=== PATIENT | male | born 2000 | race Caucasian/White ===

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

== ENCOUNTER 2019-05-31 03:14 | Emergency (ER) | payer OTHER, BC, SELFPAY ==
[2019-05-31 03:15] VITALS: BP 131/76; PULSE 98; RESP 16; TEMP 37.1; O2SAT 98; BMI 37.3
--- NOTE | 2019-05-31 03:23 | ED.DCSUM_ITS ---
History of Present Illness Chief Complaint: Laceration Informant: Patient Onset: Today Current Severity: Mild Maximum Severity: Mild Narrative: Patient presents with laceration to the distal aspect of his left thumb. He was at work tonight and caught it on the edge of a tube. No active bleeding at this time. He is left-hand dominant. He is unsure of his last tetanus update. Past Medical History - Allergies and Home Meds Allergies/Adverse Reactions: Allergies amoxicillin [From Augmentin] Allergy (Verified 05/31/19 03:20) Rash clavulanic acid [From Augmentin] Allergy (Verified 05/31/19 03:20) Rash Primary Care Physician: Care Physician,No Primary [Primary Care Provider] - Past Medical History: None Smoking Status: Never smoker Review of Systems General: Denies: Chills, Fever Eyes: Denies: Visual changes - bilaterally ENT: Denies: Bilateral ear pain Cardiovascular: Denies: Chest pain Respiratory: Denies: Dyspnea, Cough Gastrointestinal: Denies: Abdominal pain, Nausea, Vomiting, Diarrhea Musculoskeletal: Reports: Extremity Pain Skin: Reports: Wounds Neurological: Denies: Headache, Weakness, Parasthesia Hematologic: Denies: Easy bruising, Easy bleeding Physical Exam Vital Signs/Narrative: Vital Signs Temp Pulse Resp BP Pulse Ox 05/31/19 03:15 98.8 F 98 16 131/76 H 98 Inital Vital Signs reviewed: Yes General: Well nourished, Well developed Head: Normocephalic ENT: Moist mucous membranes Neck: Supple Cardiovascular: Regular rate, Regular rhythm Respiratory: No distress, CTA bilaterally Abdomen: Soft, Nontender Extremities: - - 1 cm laceration over the distal aspect of the left thumb. No active bleeding. Full range of motion. Sensation intact. Skin: - - As above Neurological: Alert, Oriented x3, Normal Strength, Normal Sensation Psychological: Normal affect Diagnostic/Tx/Re-eval - Medical Decision Making Left thumb is cleansed. The laceration is quite superficial. It is sealed with Dermabond and bulky dressing placed for tonight. Tomorrow he can go to just a Band-Aid over his hand. Tetanus shot is updated. [facility] Disposition - Plan for ED Patient: Disposition: Home or Assisted Living Diagnosis: Laceration of left thumb Instructions: LACERATION, Extremity (Skin Glue) Referrals: [facility] [GROUP OF PHYSICIANS] - 3-5 Days
--- NOTE | 2019-05-31 03:27 | ED.RN ---
PT using scrub brush to clean hands.
--- NOTE | 2019-05-31 03:53 | ED.RN ---
SEE DOWNTIME DOCUMENTATION FROM 4010 UNTIL NOW
[2019-05-31 04:06] VITALS: BP 130/60; PULSE 91; RESP 16; O2SAT 98
== END 2019-05-31 04:07 | disposition home or self-care (01) ==
PROVIDERS: Emergency Provider Emergency Medicine
DX: S61.012A Laceration without foreign body of left thumb without damage to nail, initial encounter (principal); Y99.0 Civilian activity done for income or pay
CPT/HCPCS: 12001; 90715; 99282

== ENCOUNTER 2020-08-18 05:00 | Emergency (ER) | payer OTHER, SELFPAY ==
[2019-06-05 09:05] VITALS: BMI 37.3
[2020-08-18 05:01] VITALS: BP 142/84; PULSE 90; RESP 16; TEMP 36.6; O2SAT 99; BMI 38.7
--- NOTE | 2020-08-18 05:35 | RAD_ITS ---
HISTORY: Injury/Pain. Remote and recent shoulder injury, patient states he felt a pop in left shoulder tonight. EXAMINATION/TECHNIQUE: XR Shoulder Min 2 Views: 3 views left shoulder COMPARISON: None FINDINGS: SOFT TISSUES: No significant soft tissue swelling. BONES/JOINTS: No acute fracture or subluxation. Normal alignment. Preservation of the joint spaces. No sclerotic or destructive changes observed. RAD/Shoulder min 2 Views IMPRESSION: Negative left shoulder. at 0641 Reported and signed by: Kermit Potter MD Electronically Signed: Kermit Potter MD at 6:40 EDT Tel , Service support ,
--- NOTE | 2020-08-18 05:35 | RAD_ITS ---
HISTORY: Injury/Pain EXAMINATION/TECHNIQUE: XR Hand 3 Views: Left hand COMPARISON: None FINDINGS: SOFT TISSUES: No significant soft tissue swelling. No radiopaque foreign body identified. BONES/JOINTS: There appears to be subluxation at first carpometacarpal joint. No discrete fracture defect demonstrated. Normal alignment. Preservation of the joint spaces. No sclerotic or destructive changes observed. RAD/Hand Min 3 Views IMPRESSION: First CMC subluxation. Correlate clinically and with physical exam. at 0636 Reported and signed by: Kermit Potter MD Electronically Signed: Kermit Potter MD at 6:35 EDT Tel , Service support ,
--- NOTE | 2020-08-18 05:38 | EDS_ITS ---
HPI History of Present Illness Chief Complaint: Upper Extremity Injury Informant: patient Onset/Context/Timing Onset: Today Context: Onset with activity Timing: Continuous Quality of Pain: - (Numbness) Location: Left wrist and forearm Worsened by: Nothing Relieved by: Nothing Narrative Narrative: Patient presents with numbness and tingling to his left hand and forearm that began today while at work. 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 Patient states later he noted some numbness and tingling in his left forearm and hand. Patient states he had decreased sensation from his left elbow to his left hand and fingers. Patient states that his numbness is mostly over the palmar aspect of the left hand. Patient admits to some mild neck and shoulder pain as well. Patient denies any shortness of breath. Patient denies any fevers or chills. Patient denies any other trauma or injury. PFSH PFSH Home Medications naproxen 500 mg PO BID PRN #20 tab 08/18/20 [Rx Last Taken Unknown] Allergy/AdvReac Type Severity Reaction Status Date / Time amoxicillin [From Augmentin] Allergy Rash Verified 08/18/20 05:05 clavulanic acid Allergy Rash Verified 08/18/20 05:05 [From Augmentin] Social History Smoking Status: Never smoker Smokeless tobacco user: chewing tobacco alcohol intake: current alcohol intake frequency: a few times a month ROS ROS ED Constitutional Constitutional ED: Denies chills or fever(s) Eyes Eyes: Denies blurry vision or change in vision ENT ENT ED: Denies rhinorrhea or sore throat Cardiovascular Cardiovascular: Denies chest pain or palpitations Respiratory/Chest Respiratory/Chest: Denies cough or dyspnea Gastrointestinal Gastrointestinal: Denies nausea or vomiting Genitourinary Genitourinary ED: Denies dysuria or hematuria Musculoskeletal Musculoskeletal: Reports back pain and neck pain Integumentary Denies abscess or rash Neurologic Neurologic: Reports paresthesias LUE; Denies headache(s) or weakness Allergic/Immunologic Allergic/Immunologic ED: Denies mouth swelling or urticaria EXAM Physical Exam Const Vital Signs: 08/18/20 05:01 Temperature 97.9 F Temperature Source Temporal Pulse Rate 90 Respiratory Rate 16 Blood Pressure 142/84 H Blood Pressure Mean 103 Pulse Ox 99 Oxygen Delivery Method Room Air Positive well nourished, well developed and obese General Appearance ED: well developed Nutritional Appearance: obese HEENT Reports moist mucous membranes Neck full ROM and supple Resp normal respiratory effort and clear to auscultation bilaterally Cardio regular rate and regular rhythm GI non-tender and non-distended Auscultation: normoactive bowel sounds Palpation: soft Extremity Extremity Narrative: There is some mild tenderness over the left shoulder area. There is no cervical spine tenderness or paraspinal muscle tenderness. There is no bony crepitance or step-off. Range of motion was slightly limited in all motions of the left shoulder secondary to pain. Strength is 5/5 bilateral knee upper extremities. There is some decreased sensation over the left forearm, wrist, and hand. There is no dermatomal distribution to it. Neuro oriented x3, CN's II-XII intact bilaterally, moves all extremities and no focal motor deficits Sensorium / Orientation: alert Psych mental status grossly normal MDM MDM MDM Narrative Medical decision making narrative: X-rays of the left hand were obtained. There are 3 views. On my interpretation, there is no acute fracture. There is no dislocation. There is no soft tissue swelling. Radiologist also interpreted the x-rays and agrees. X-rays of the left shoulder was were obtained. There are 5 views. On my interpretation, there is no acute fracture. There is no dislocation. There is no soft tissue swelling. Radiologist also interpreted the x-rays and agrees. Patient was advised of his findings. Patient was instructed to ice and elevate the left upper extremity. Patient was given a prescription for Naprosyn. Patient was instructed to follow-up with his primary care physician or [facility] in 3-5 days. Patient understood and was agreeable with the plan. All questions were answered. Discharge Plan Triage Chief Complaint: Upper Extremity Injury ED Provider: Alfredo Wood Dx/Rx/DC Orders Clinical Impression: Arm paresthesia, left Instructions: ED Paraesthesias Prescriptions: New naproxen 500 MG tablet 500 mg PO BID PRN Qty: 20 RF: 0 Stand Alone Forms: Work Status Form Primary Care Provider: Care Physician,No Primary Referrals: [facility] [GROUP OF PHYSICIANS] - 3-5 Days Care Physician,No Primary [Primary Care Provider] - Disposition Disposition: Home, self care Discharge Date/Time: 08/18/20 07:51
[2020-08-18] MEDS: Ketorolac 60 MG/2 ML Vial IM (06:04)
[2020-08-18 07:51] VITALS: PULSE 75; RESP 16; O2SAT 98
== END 2020-08-18 07:51 | disposition home or self-care (01) ==
PROVIDERS: Emergency Provider Emergency Medicine
DX: R20.2 Paresthesia of skin (principal); R20.0 Anesthesia of skin; E66.9 Obesity, unspecified; F17.220 Nicotine dependence, chewing tobacco, uncomplicated
CPT/HCPCS: 73030; 73130; 96372; 99282